=== PATIENT | female | born 1975 ===

== ENCOUNTER 2017-04-01 09:14 | Outpatient (CLI) | payer MEDICAID ==
--- NOTE | 2017-04-02 14:16 | Mammography Report ---
BILATERAL DIGITAL SCREENING MAMMOGRAM with CAD: 04/01/17 09:14:00 CLINICAL: Baseline screening. FINDINGS: The breasts are heterogeneously dense, which may obscure small masses. Bilateral asymmetries require additional imaging.No architectural distortion or suspicious calcifications. IMPRESSION: Bilateral asymmetries requiring further workup. BI-RADS CATEGORY: 0 -- Additional Imaging Evaluation Required RECOMMENDATION: Recall for bilateral true lateral and spot compression views and bilateral breast ultrasound if needed. ACR BI-RADS MAMMOGRAPHIC CODES: 0 = Needs additional imaging evaluation; 1 = Negative; 2 = Benign; 3 = Probably benign; 4 = Suspicious; 5 = Malignant; 6 = Known biopsy-proven malignancy COMMENT: 1. Dense breast tissue, i.e., adenosis, fibrocystic changes, etc., may obscure an underlying neoplasm. 2. Approximately 10% of cancers are not detected with mammography. 3. A negative mammography report should not delay biopsy if a clinically suspicious mass is present. COMMENT: Patient follow-up letters are generated via our [employer] application.
== END 2017-04-01 09:15 | disposition home or self-care (01) ==
LOC: SPVWC 09:14
PROVIDERS: ATTEND Advanced Practice Midwife
DX: Z12.31 Encounter for screening mammogram for malignant neoplasm of breast (principal)
CPT/HCPCS: 77067

== ENCOUNTER 2018-02-17 14:33 | Emergency (ER) | payer MEDICAID, OTHER ==
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
[2018-02-17] MEDS ORDERED: ULTRAM PO ONE (17:21)
[2018-02-17] MEDS ORDERED: NACL 0.9% 1000 ML 1,000 ML IV ONE (18:23)
[2018-02-17] MEDS ORDERED: MORPHINE IV ONE (18:23)
[2018-02-17] MEDS ORDERED: ZOFRAN IV ONE (18:23)
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
--- NOTE | 2018-02-17 18:43 | Cat Scan Report ---
FINAL REPORT EXAM: CT CHEST WO CON HISTORY: chest pain TECHNIQUE: CT examination of the chest without IV contrast PRIORS: None. FINDINGS: Normal cardiac size without pericardial effusion. Normal caliber thoracic aorta. Normal appearing eso phagus. No hilar mass or mediastinal adenopathy. Smoothly marginated hypodense left hepatic lobe lesions are nonspecific and statistically most likely reflect cysts and/or hemangiomas. They are too small to characterize. Slight degenerative change in the regional skeleton. No evidence of acute fracture. No pneumothorax, pleural effusion, or focal pulmonary consolidation. Small calcified benign granuloma left upper lobe laterally. 5 mm noncalcified subpleural lateral posterior left lower lobe pulmonary nodule, series 2, image 78. IMPRESSION: 5 mm noncalcified pulmonary nodule left lower lobe. Recommend followup surveillance chest CT in 6 mon ths to ensure stability No CT evidence of acute cardiopulmonary disease
[2018-02-17 20:57] VITALS: BP 119/75
== END 2018-02-17 21:01 | disposition other institution (70) ==
LOC: ED 14:33
DX: S22.20XA Unspecified fracture of sternum, initial encounter for closed fracture (principal); F17.200 Nicotine dependence, unspecified, uncomplicated; Z88.2 Allergy status to sulfonamides; V49.49XA Driver injured in collision with other motor vehicles in traffic accident, initial encounter; Y93.89 Activity, other specified; Y99.8 Other external cause status; Y92.410 Unspecified street and highway as the place of occurrence of the external cause
CPT/HCPCS: 71250; 93005; 93010; 96374; 96375; 99291; J2270; J2405; J7030